=== PATIENT | female | born 1960 | race African-American/Black ===

== ENCOUNTER → 2018-08-29 | Outpatient (CLI) | payer BC ==
--- NOTE | 2018-08-29 14:00 | KCIC ---
EXAM: Bilateral digital screening mammogram with tomosynthesis. HISTORY: 57-year-old female presents for screening mammography. TECHNIQUE: Full-field digital craniocaudal and mediolateral oblique 2D and 3D tomosynthesis images of both breasts are obtained for evaluation. Computer aided detection with [employer] software version 9.3 was applied. COMPARISON: Sonogram dated 01/29/2016 and mammogram dated 09/26/2015. BREAST PARENCHYMAL DENSITY: Level C - Heterogeneously dense. FINDINGS: There are multiple circumscribed nodules within both breasts, some of which are more conspicuous compared to the prior study. This may be due to differences in imaging technique. There are few benign calcifications. There is no distortion. IMPRESSION: 1. Several circumscribed nodular densities within both breasts, some of which are more conspicuous compared to the prior study. This may be due to differences in imaging technique. 2. Note is made that the patient did not return for the recommended short-term sonographic follow-up evaluation of a suspected cystic lesion within the right breast demonstrated on a study dated 10/23/2015. 3. BI-RADS Category 0: Additional imaging needed. Further evaluation with a bilateral breast sonogram to assess areas of nodularity within both breasts and to complete a previously recommended follow-up of a suspected cystic lesion within the right breast is recommended. If your mammogram demonstrates that you have dense breast tissue, which could hide abnormalities, and if you have other risk factors for breast cancer that have been identified, you might benefit from supplemental screening tests that may be suggested by your ordering physician. Dense breast tissue, in and of itself, is a relatively common condition. This information is not provided to cause undue concern, but rather to raise your awareness and to promote discussion with your physician regarding the presence of other risk factors, in addition to dense breast tissue. A report of your mammography results will be sent to you and your physician. You should contact your physician if you have any questions or concerns regarding this report. Mammography is a sensitive method for finding small breast cancers, but it does not detect them all and is not a substitute for careful clinical examination. A negative mammogram does not negate a clinically suspicious finding and should not result in delay in biopsying a clinically suspicious abnormality. PQRS compliance statement - Patient information was entered into a reminder system with a target due date for the next mammogram. "Our facility is accredited by the [employer] Mammography [employer]." Electronically signed by: Mickie Garcia MD (08/29/2018 1:57 PM) [id number]
== END | disposition home or self-care (01) ==
LOC: KCIC MAMMO 11:50
PROVIDERS: ATTEND Internal Medicine
DX: Z12.31 Encounter for screening mammogram for malignant neoplasm of breast (principal)
CPT/HCPCS: 77063; 77067

== ENCOUNTER → 2018-09-08 | Outpatient (CLI) | payer BC ==
--- NOTE | 2018-09-08 16:26 | KCIC ---
Bilateral breast ultrasound: Reason for examination: Nodular densities on screening mammogram. Comparison is made to mammographic exam dated 08/29/2018. Bilateral whole breast ultrasound including evaluation of all 4 quadrants and the retroareolar and axillary regions of both breasts was performed. In the right breast at the 3:00 position 6 cm from the nipple, there is a small 6.1 x 3.1 mm hypoechoic lesion consistent with a complicated cyst. In the 3:30 position 6 cm from the nipple, there is an additional 7.2 x 6.7 mm hypoechoic lesion also consistent with a complicated cyst. In the 8:30 position 6 cm from the nipple, there appears to be a cluster of cysts measuring 9.7 x 16.9 mm in greatest dimension. At the 9:00 position 5 cm from the nipple, there is a 4.2 x 3.6 mm hypoechoic fibrocystic type lesion. In the 9:30 position 9 cm from the nipple, there is a 3.3 x 2.9 mm fibrocystic type lesion. No abnormal appearing lymph nodes are seen in the right axilla. In the left breast at the 3:00 position 8 cm from the nipple, there is a small 3.7 x 3.4 mm hypoechoic circumscribed lesion probably representing a small complicated cysts. In the 9:00 position 7 cm from the nipple, there is a 2 cm area of fibrocystic change with a 8.5 mm cyst. No abnormal appearing lymph nodes are seen in the left axilla. IMPRESSION: Benign-appearing cystic and fibrocystic type lesions bilaterally. No suspicious abnormality seen. Recommend reevaluation with ultrasound in 6 months. BI-RADS Category 3: Probably Benign. "Our facility is accredited by the [employer] Mammography [employer]." This patient's information has been entered into a reminder system for the patient to be notified with the results of her examination and a target date for the next mammogram. Electronically signed by: Lynette Avery MD (09/08/2018 4:23 PM) [id number]
== END | disposition home or self-care (01) ==
LOC: KCIC US 13:02
PROVIDERS: ATTEND Internal Medicine
DX: R92.8 Other abnormal and inconclusive findings on diagnostic imaging of breast (principal)
CPT/HCPCS: 76641

== ENCOUNTER → 2019-03-09 | Outpatient (CLI) | payer BC ==
--- NOTE | 2019-03-09 14:56 | KCIC ---
BREAST BILATERAL Clinical Indication: Six-month follow-up. Comparison: Bilateral breast ultrasound, 09/08/2018. TECHNIQUE: Real-time ultrasound imaging of the right and left breast is performed in all 4 quadrants and in the axilla. Findings: Right: Unchanged up to 6 mm complicated cyst at the 3:00 position 6 cm from the nipple of the right breast is stable. 5 mm cyst 3:30 o'clock position is slightly smaller. Cluster of cysts 8:30 o'clock position 6 cm from the nipple is unchanged measuring up to 1.6 cm. There is increased through transmission. 4 mm fibrocystic lesion at the 9:00 position 5 cm from the nipple is stable. Fibrocystic lesion at the 9:30 o'clock position 9 cm from the nipple is no longer seen. No abnormal right axillary lymph nodes. Left: In the left breast 3:00 position 8 cm from the nipple, 4 mm hypoechoic mass may be a complicated cyst or fibroadenoma and is stable. Lesion in the 9:00 position 7 cm from the nipple is stable in size measuring up to 2 cm. A component of this is a cyst measuring 10 x 8 mm. The other component may be fibrocystic as seen on image 39. The fibrocystic component is better defined than on the prior study. There is no abnormal left axillary lymph node. IMPRESSION: 1. Right breast findings including a cluster of cysts at the 8:30 position are stable. 2. Cystic and fibrocystic lesion of the left breast 9:00 position is stable in size. Recommend additional left breast ultrasound follow-up in 6 months. BI-RADS Category 3, probably benign Electronically signed by: Neal Pina MD (03/09/2019 2:53 PM) [id number]
== END | disposition home or self-care (01) ==
LOC: KCIC US 13:00
PROVIDERS: ATTEND Internal Medicine
DX: N60.01 Solitary cyst of right breast (principal); N64.89 Other specified disorders of breast
CPT/HCPCS: 76641

== ENCOUNTER → 2021-12-09 | Outpatient (CLI) | payer BC ==
--- NOTE | 2021-12-09 12:01 | KCIC ---
Bilateral diagnostic digital mammograms with 3-D tomosynthesis: Reason for examination: Follow-up nodules. Comparison is made to previous studies dated 08/29/2018 and 09/26/2015. Bilateral mammograms in CC and oblique projections were obtained with 2-D imaging and 3-D tomosynthes is imaging on a Siemens Inspiration unit and reviewed on the workstation. Interpretation was made wit h the benefit of CAD. The skin and nipples show no abnormalities. No abnormal axillary lymph nodes are seen. The breast par enchyma is extremely dense. (Breast density: Category D.) There continues to be a nodule at the 8:30 B position of the right breast which contains some punctate calcifications but appears to be slightly smaller than on previous exam. There is also a nodular density seen at the 9:00 B position of the le ft breast which appears be stable. There is also a new well-circumscribed nodule at the 10:00 B posit ion 8.5 cm from the nipple measuring 7 mm size. Further evaluation with ultrasound will follow. No jarvis spicious calcifications are seen. Impression: Continued presence of nodules at the 8:30 B position of the right breast and 9:00 B position of the l eft breast. New 7 mm circumscribed nodule at the 10:00 B position of the right breast. Ultrasound to follow. Your patient's mammogram demonstrates that she has dense breast tissue (breast density category C or D), which could hide abnormalities, and if she has other risk factors for breast cancer that have bee n identified, she might benefit from supplemental screening tests that may be suggested by you as her ordering physician. Dense breast tissue, in and of itself, is a relatively common condition. Therefo re, this information is not provided to cause undue concern, but rather to raise your awareness and t o promote discussion with your patient regarding the presence of other risk factors, in addition to d ense breast tissue. Your patient's mammography results will be sent to her. BI-RAD Category 0: Incomplete. Needs additional imaging evaluation. Bilateral breast ultrasound: Comparison is made to previous study dated 09/08/2019. Bilateral whole breast ultrasound including evaluation of all 4 quadrants and the retroareolar and ax illary regions of both breasts was performed. In the right breast at the 8:30 position 6 cm from the nipple, there continues to be a 8.5 x 1.2 cm f ibrocystic lesion with echogenic flecks consistent with calcifications. Appearance would be consisten t with a fibrocystic lesion. At the 10:00 position 6 cm from the nipple, there is a 7 mm hypoechoic c ircumscribed lesion with a fibrocystic appearance which correlates to the new mammographic finding. N o abnormal appearing lymph nodes are seen in the right axilla. In the left breast at the 9:00 position 7 cm from the nipple, there continues to be a 0.8 x 1.1 cm fi brocystic nodule which shows slight improvement since previous exam. No new cystic or solid nodules a re seen. No abnormal appearing lymph nodes are seen in the left axilla. IMPRESSION: New fibrocystic lesion at the 10:00 position of the right breast measuring 7 mm in size is probably f ibrocystic but recommend 6 month follow-up with right breast ultrasound. Stable nodules at the 8:30 position of the right breast and 9:00 position of the left breast which small ve fibrocystic appearances. Recommend routine mammographic follow-up. BI-RADS Category 3: Probably Benign. "Our facility is accredited by the [employer] Mammography [employer]." This patient's information has been entered into a reminder system for the patient to be notified wit h the results of her examination and a target date for the next mammogram. Electronically signed by: Lynette Avery MD (12/09/2021 11:59 AM) [id number]
== END ==
LOC: KCIC MAMMO 10:00
PROVIDERS: ATTEND Internal Medicine
DX: Z09 Encounter for follow-up examination after completed treatment for conditions other than malignant neoplasm (principal); N63.13 Unspecified lump in the right breast, lower outer quadrant
CPT/HCPCS: 76641; 77066; G0279; 77062